=== PATIENT | male | born 1995 | race Caucasian/White ===

== ENCOUNTER 2021-12-14 18:05 | Emergency (ER) | payer MEDICAID ==
[~2021-12-14] VITALS: Ht 160 cm; Wt 74.4 kg
[2021-12-14 18:18] VITALS: BP 141/91
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
[2021-12-14] MEDS ORDERED: IBUPROFEN 600 MG TAB PO ONE (18:35)
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
[2021-12-14] MEDS ORDERED: IBUP-2213 PO (19:38)
[2021-12-14] MEDS ORDERED: METH-1681 PO (19:51)
[2021-12-14] MEDS ORDERED: IBUPROFEN 600 MG TAB ONE (20:40)
[2021-12-14 20:45] VITALS: BP 141/91
== END 2021-12-14 20:45 | disposition home or self-care (01) ==
LOC: MED 18:05
DX: S39.012A Strain of muscle, fascia and tendon of lower back, initial encounter (principal); M25.561 Pain in right knee; M92.529 Juvenile osteochondrosis of tibia tubercle, unspecified leg; Z79.899 Other long term (current) drug therapy; V06.99XA Pedestrian with other conveyance injured in collision with other nonmotor vehicle, unspecified whether traffic or nontraffic accident, initial encounter; Y93.89 Activity, other specified; Y92.89 Other specified places as the place of occurrence of the external cause; Y99.8 Other external cause status
CPT/HCPCS: 72100; 73502; 73562; 73590; 99284